=== PATIENT | male | born 1985 | race Caucasian/White ===

== ENCOUNTER 2016-12-25 03:23 | Observation (INO) | payer OTHER ==
[~2016-12-25] VITALS: Ht 185.4 cm; Wt 84.5 kg
--- NOTE | ~2016-12-25 | OR ---
PATIENT'S NAME: ARVIN REA [facility] AGE: 31 Y [address] ROOM: [address] [address] LOCATION: [facility] [place] ADMIT DATE: 12/25/2016 OR/Procedure Report DISCHARGE DATE: FAMILY PHYSICIAN: PHYSICIAN, NO ATTENDING PHYSICIAN: David Robertson SURGEON: David Robertson MD HANDLE ATTACHER: José Luis Feng PA-C. DATE OF PROCEDURE: 12/25/2016 PREOPERATIVE DIAGNOSIS: Acute appendicitis. POSTOPERATIVE DIAGNOSIS: Acute appendicitis. PROCEDURE PERFORMED: Laparoscopic appendectomy. FINDINGS: The patient had acutely inflamed appendix consistent with appendicitis. No perforation was present. There was a small amount of fibrinous exudate. ESTIMATED BLOOD LOSS: 20 mL. COMPLICATIONS: None. INDICATIONS: The patient is a 31-year-old male, who presented with abdominal pain, mainly in the right lower quadrant, had CT evidence of appendicitis. We discussed appendectomy with the patient, the risks, benefits, and alternatives, and he elected to proceed. DESCRIPTION OF PROCEDURE: The patient was taken to the operating room, placed supine, given IV sedation, subsequently intubated. His abdomen was prepped with ChloraPrep and sterilely draped. Local anesthetic was infiltrated just inferior to the umbilicus. The abdomen was elevated. Veress needle was inserted. Pneumoperitoneum induced. Following this a 5 mm trocar was inserted, followed by insertion of the camera. There was no injury from initial trocar placement. Two more trocars were then positioned, a 5 mm suprapubic and a 12 mm left lower quadrant port. Skin overlying the peritoneum was first anesthetized prior to making these incisions. Both these trocars were inserted under direct visualization. The right lower quadrant was attended to. The appendix was identified, it was inflamed. The appendix was elevated, it was grasped. A window was created at the base of the appendix. A laparoscopic stapler was inserted and fired across the base of the appendix. A second staple load was placed across the mesoappendix and fired. The appendix was placed in an EndoCatch bag and brought out through the left lower quadrant port site. The operative field was then inspected. It appeared hemostatic. The staple lines appeared intact. The area was [facility]GE[facility] 31 Y [address] ROOM: [address] [address] LOCATION: [facility] [place] ADMIT DATE: 12/25/2016 OR/Procedure Report DISCHARGE DATE: FAMILY PHYSICIAN: PHYSICIAN, NO ATTENDING PHYSICIAN: David Robertson irrigated. Fluid was removed. Pneumoperitoneum was released. The trocars were removed. The trocar sites appeared hemostatic. The fascia of the 12 mm port site was approximated with 0 Vicryl suture, followed by skin closure of all 3 port sites with 4-0 Monocryl suture. Steri-Strips and sterile dressings were placed. The patient was extubated and sent to recovery in good condition. José Luis Feng was necessary for visualization and retraction and aiding in hemostasis throughout the case. MD GRIS COSTELLOO/manuelal /[id number] d: 12/25/16 1152 t: 01/02/17 0613, OPERATIVE SUMMARY
--- NOTE | ~2016-12-25 | HP ---
PATIENT'S NAME: BALJIT REA [facility] AGE: 31 Y [address] ROOM: [place] [address] [address]: [facility] [place] ADMIT DATE: 12/25/2016 History & Physical DISCHARGE DATE: FAMILY PHYSICIAN: PHYSICIAN, NO ATTENDING PHYSICIAN: David Robertson DATE OF SERVICE: CHIEF COMPLAINT: Abdominal pain. HISTORY OF PRESENT ILLNESS: The patient is a 31-year-old male, who yesterday at 11:45 said he had a pain in his abdomen, described this as kind of mid upper abdomen and this got worse. Said he went inside to his house. He did continue to work, but throughout the day this got worse and worse, then moved to his lower abdomen, and now describes pain in the right lower quadrant. He had no nausea or vomiting with this. Did have bowel movements, described these as loose. He has had no fevers or chills. Never had pain like this in the past. Said the pain hurts most when he moves, better when he lies still. He was seen in [place], where he was evaluated, was reported to me as a leukocytosis of 16,000, although we are having a little bit of difficulty obtaining that laboratory work. Ultimately, he had a CT scan. CT scan revealed evidence of early appendicitis. ALLERGIES: TO BLUEBERRIES, TOMATO JUICE, CATS AND BEE STINGS. HAD ANAPHYLAXIS TO BLUEBERRIES, CATS, AND BEE STINGS. CURRENT ILLNESSES: 1. Asthma. 2. Posttraumatic stress disorder. 3. Bipolar disorder. CURRENT MEDICATIONS: 1. Symbicort. 2. Albuterol. 3. Benadryl. REVIEW OF SYSTEMS: Denies headache or vision changes. No chest pain or shortness of breath. No melena or hematochezia. He did have the diarrhea. No hematuria or dysuria. PHYSICAL EXAMINATION: GENERAL: A pleasant 31-year-old male, in no acute distress. PATIENT'S NAME: BALJIT REA [facility] AGE: 31 Y [address] ROOM: [place] [address] LOCATION: [facility] [place] ADMIT DATE: 12/25/2016 History & Physical DISCHARGE DATE: FAMILY PHYSICIAN: PHYSICIAN, NO ATTENDING PHYSICIAN: David Robertson HEENT: Head is normocephalic, atraumatic. Eyes are anicteric. NECK: Supple. No lymphadenopathy. HEART: Regular rate and rhythm. LUNGS: Clear to auscultation bilaterally. ABDOMEN: Soft. He does have point tenderness in the right lower quadrant with some voluntary guarding. No rebound is present. Bowel sounds are present. EXTREMITIES: Warm, no edema. NEUROLOGIC: Gross motor is intact. ASSESSMENT: Acute appendicitis. PLAN: Discussed findings with Baljit. We discussed surgery versus antibiotic therapy; risks of surgery which include bleeding, infection, ongoing pain, abscess formation, injury to other viscera. He understands the risks and wishes to proceed. DAVID J MD IVANNA ROBERTSON/poncho /[id number] D: [id number] T: [id number] HISTORY & PHYSICAL
--- NOTE | 2016-12-25 05:14 | NUR ---
PT arrived per private car with girlfriend from [facility]. wheelchair from er to room. pt rates pain 8-10 upon arrival. pt alert and oriented x4.pleasant and calm with staff. pt states he was not feeling well all day, has lower abdomen pain and pain got bad enough he went to [place] [facility]. pt has significant physh history. Bipolar, anxiey,PTSD,schizophrenia,PTSD,depression. pt is not currently taking any medication for these. stats he can not afford them. pt states he has not taken then since her was released from [facility] 2 years ago. does smoke 1/2 pack a day, and smokes marijuana daily. pt denies any suicidal thoughts at this time. says he neborn son has helped with his depression. pt has been having blood stools since 2012 however did not go to the scheduled colonoscopy,lung sound clear bowel sounds present x4 quadrants. abdomen tender to touch. no problems with urination. pt has iv to left ac running LR at 125ml/hr. 1 dose of Invanz was given upon admission, as well as 2mg morphine iv for pain. pt is resting well at this time. girlfriened and baby are in room. pt is npo for appy today with .
--- NOTE | 2016-12-25 12:54 | NUR ---
Met with girlfriend while patient was down to surgery. Introduced myself and SW property management intern Rosa and explained our role with the CM deparment. Per girlfriend, patient does not have insurance. She does not think they received the financial service representative application so I provided her with on. I informed her that patient did well in surgery and if he does well today he will likely discharge early evening per Dr. Morfin. She will let me know if they have any needs or concerns.
[2016-12-25] MEDS ORDERED: PROVENTIL OR V6.7 GM INH (14:07)
[2016-12-25] MEDS ORDERED: SYMBICORT 80-10.2 GM INH (14:07)
[2016-12-25] MEDS ORDERED: BENADRYL25 MG PO (14:07)
--- NOTE | 2016-12-25 14:50 | NUR ---
Significant Event: Patient down to [facility] at 0720 and back to room at 1215. Due for pain medication at 1500 but has done well since last dose in PACU. Up with standby assist. Patient has voided twice--once in PACU and once when back on floor. Has been on clear liquids and just ordered a sandwich for patient as he is still hungry and has not had any liquids. Dr. Robertson or José Luis may be up later to see if patient could be dismissed tonight. Follow up: Continue to monitor.
--- NOTE | 2016-12-25 16:33 | NUR ---
Significant Event: Took over cares at 1500. Ambulated in bond with standby assist. 2 norco given at 1530 for abd incisional pain. Dressings to abd d/i. VS stable. Will dc to home this evening. Follow up:
[2016-12-25] MEDS ORDERED: NORCO 5-325 TA1 EACH PO (17:08)
--- NOTE | 2016-12-25 18:19 | NUR ---
DISCHARGE: Pt. was educated on lap appy d/c instructions, new medication: norco, d/c instructions and scripts. No questions or concerns, verbalized understanding of teaching. Left with all belongings and scripts. Given financial aide packet. IV removed by primary nurse. Taken to front door by aide and driven home by significant other.
== END 2016-12-25 17:35 | disposition disaster alternative care site (69) ==
LOC: GMSU 03:23
PROVIDERS: ADMIT Surgery
PROC: 0DTJ4ZZ Resection of Appendix, Percutaneous Endoscopic Approach (ICD-10-PCS; principal; 2016-12-25)
DX: K35.80 Unspecified acute appendicitis (principal); F32.9 Major depressive disorder, single episode, unspecified; F20.9 Schizophrenia, unspecified; F31.9 Bipolar disorder, unspecified; J45.909 Unspecified asthma, uncomplicated; F43.10 Post-traumatic stress disorder, unspecified; Z79.899 Other long term (current) drug therapy; Z91.030 Bee allergy status; Z91.09 Other allergy status, other than to drugs and biological substances
CPT/HCPCS: G0378; J1100; J1335; J2250; J2270; J2405; J3010; J7120